=== PATIENT | female | born 1955 | race Caucasian/White ===

== ENCOUNTER 2018-06-09 12:37 | Outpatient (CLI) | payer BC ==
--- NOTE | 2018-06-09 15:41 | MRI ---
MRI THORACIC SPINE NONCONTRAST: Date: 06/09/18 HISTORY: 62-year-old male with M54.6 acute thoracic back pain. COMPARISON: None. FINDINGS: There is moderate disc space narrowing with mild to moderate end plate irregularities at all levels o f the mid and lower thoracic spine. Vertebral body heights are maintained. No major bone marrow signa l abnormality. The thoracic spinal cord is normal in size and signal. There is an anterior epidural mass measuring approximately 1 x 0.5 x 1.5 cm abutting the posterior arana rface of the T12 vertebral body at midline and to the left of midline. It decreases the cross-section al area of spinal canal at that level by approximately 20%. Although there is CSF space between this mass and the lower spinal cord, the lower spinal cord appears to be deformed, moderately indented at its left ventral aspect, and slightly posteriorly displaced. The inferior extent of this mass is at t he posterior edge of the T12-L1 disc space. The superior edge of this mass is at the pedicle level of T12. There are small, shallow disc protrusions or disc-osteophyte complexes that indent the ventral aspect of the thecal sac at multiple levels, on the right, on the left, and at midline variously, at multip le levels in the mid and lower thoracic spine. There is no high grade central spinal canal stenosis a t any level. No high grade neural foraminal stenosis at any level. IMPRESSION: 1. Thoracic spondylosis, with multilevel mild to moderate degenerative disc changes. 2. Extruded disc herniation at T12-L1, with superior migration of the extruded disc material. The lo wer spinal cord appears distorted at the level of this disc herniation, but there is no high grade ce ntral spinal canal stenosis at this level. 3. No high grade central spinal canal stenosis, high grade neural foraminal stenosis, or compression fracture, at any level. POS: [facility]
--- NOTE | 2018-06-09 15:57 | MRI ---
MRI CERVICAL SPINE: HISTORY: Difficulty walking with weakness since November of 2017. FINDINGS: Multiplanar, multisequence noncontrast-enhanced MRI images cervical spine obtained. The cervical spinal cord is unremarkable. C1-2, C2-3, C3-4: Unremarkable. C4-5: Disk desiccation is seen. There is a broad-based disk-osteophyte complex centrally compressin g the thecal sac resulting in a moderate degree of C4-5 central spinal stenosis. Mild spinal cord co mpression is seen. There is moderate bilateral C4-5 neural foraminal narrowing due to uncovertebral osteophyte hypertrophy. C5-6: There is some disk desiccation seen. There is a disk-osteophyte complex centrally resulting i n a moderate degree of central and lateral recess stenosis. There is moderate bilateral C5-6 neural foraminal narrowing due to uncovertebral osteophyte hypertrophy. C6-7: There is some disk desiccation seen. There is mild bilateral C6-7 neural foraminal narrowing due to uncovertebral osteophyte hypertrophy. The central canal is patent. C7-T1: Unremarkable. IMPRESSION: C4-5, C5-6 central and neural foraminal narrowing due to osteophyte encroachment. POS: [facility]
== END 2018-06-09 12:38 | disposition home or self-care (01) ==
LOC: TBSIIMAG 12:37
PROVIDERS: ATTEND Neurological Surgery
DX: M54.6 Pain in thoracic spine (principal); M47.12 Other spondylosis with myelopathy, cervical region; M48.02 Spinal stenosis, cervical region; M99.81 Other biomechanical lesions of cervical region; M25.78 Osteophyte, vertebrae; M51.34 Other intervertebral disc degeneration, thoracic region; M47.894 Other spondylosis, thoracic region; M51.25 Other intervertebral disc displacement, thoracolumbar region
CPT/HCPCS: 72141; 72146

== ENCOUNTER 2023-08-19 11:08 | Emergency (ER) | payer MEDICARE, BC ==
[~2023-08-19 11:08] MED LIST: Iopamidol-370 76% 500 ML MDV (1 ML CHARGE) ONE
[2023-08-19 12:13] LABS: ALT (SGPT) 25 U/L (8-55); AST (SGOT) 33 U/L (5-34); Alkaline Phosphatase 70 U/L (40-110); Anion Gap 15 mmol/L (10-20); BUN (Urea Nitrogen) 19 mg/dL (9.8-20.1); Bilirubin, Total 0.7 mg/dL (0.2-1.2); Calc. Creatinine Clearance 0 mL/min (70-130); Calcium 9.5 mg/dL (7.8-10.44); Carbon Dioxide 30 mmol/L (23-31); Chloride 99 mmol/L (98-107); Estimated GFR 89; Globulin 3.3 g/dL (2.4-3.5); Glucose 97 mg/dL (80-115); Lipase 17 U/L (8-78); Potassium 4.3 mmol/L (3.5-5.1); Protein, Total 7.3 g/dL (5.8-8.1); Sodium 140 mmol/L (136-145)
[2023-08-19 12:17] LABS: Troponin I Less than 0.010 ng/mL (< 0.028)
[2023-08-19 13:03] LABS: #Eosinphils 0.1 thou/uL (0.0-0.7); #Neutrophils 4.7 thou/uL (1.40-6.50); %Basophils 0.2 % (0.0-1.0); %Eosinophils 1.5 % (0.0-10.0); %Lymphocytes 29.5 % (21.0-51.0); %Monocytes 11.6 % (0.0-10.0); %Neutrophils 56.6 % (42.0-75.0); Hematocrit 38.7 % (36.0-47.0); Mean Corpuscular HGB CONC 33.6 g/dL (32.0-36.0); Mean Corpuscular Hemoglobin 34.7 pg (27.0-31.0); Mean Corpuscular Volume 103.2 fl (78.0-98.0); Mean Platelet Volume 10.2 fL (7.4-10.4); Platelet Count 224 10x3/uL (130-400); RBC Distribution Width 13.5 % (11.5-14.5); Red Blood Cell (RBC) Count 3.75 mill/uL (4.20-5.40); White Blood Cell (WBC) Count 8.3 10x3/uL (4.8-10.8)
== END 2023-08-19 17:08 | disposition home or self-care (01) ==
LOC: ERS 11:08
DX: R07.81 Pleurodynia (principal); I10 Essential (primary) hypertension; E03.9 Hypothyroidism, unspecified; E66.9 Obesity, unspecified; G47.30 Sleep apnea, unspecified
CPT/HCPCS: 36415; 71045; 71275; 80053; 83690; 84484; 85025; 93005; 94760; Q9967

== ENCOUNTER 2024-12-01 16:31 | Emergency (ER) | payer MEDICARE ==
[2024-12-01] MEDS ORDERED: Ketorolac Tromethamine 30 MG (1 mL) VIAL ONE (18:19)
[2024-12-01] MEDS ORDERED: Acetaminophen 500 MG TAB ONE (18:20)
[2024-12-01] MEDS ORDERED: diphenhydrAMINE 50 MG/ML VIAL ONE (18:20)
[2024-12-01] MEDS ORDERED: Metoclopramide HCl 10 MG (2 mL) VIAL ONE (18:20)
== END 2024-12-01 21:50 | disposition home or self-care (01) ==
LOC: ERS 16:31
DX: R51.9 Headache, unspecified (principal); I10 Essential (primary) hypertension; E66.9 Obesity, unspecified
CPT/HCPCS: 70450; J1200; J1885; J2765; 96374; 96375

== ENCOUNTER 2025-06-09 10:05 | Inpatient (IN) | payer MEDICARE ==
[2025-06-09 10:32] LABS: #Basophils Less than 0.03 10x3/uL (0.0-0.2); #Eosinophils 0.09 10x3/uL (0.0-0.7); #Monocytes 0.79 10x3/uL (0.11-0.59); #Neutrophils 4.35 10x3/uL (1.40-6.50); %Basophils 0.3 % (0.0-1.0); %Eosinophils 1.2 % (0.0-10.0); %Lymphocytes 27.6 % (21.0-51.0); %Monocytes 10.7 % (0.0-10.0); %Neutrophils 59.1 % (42.0-75.0); Hematocrit 38.0 % (36.0-47.0); Hemoglobin 12.1 g/dL (12.0-16.0); Mean Corpuscular Hemoglobin 33.3 pg (27.0-31.0); Mean Corpuscular Volume 104.7 fL (78.0-98.0); Platelet Count 280 10x3/uL (130-400); Red Blood Cell (RBC) Count 3.63 mill/uL (4.20-5.40); White Blood Cell (WBC) Count 7.36 10x3/uL (4.8-10.8)
[2025-06-09 10:48] LABS: ALT (SGPT) 29 U/L (Less than 34); AST (SGOT) 64 U/L (11-34); Albumin 2.9 g/dL (3.1-4.5); Alkaline Phosphatase 98 U/L (40-110); Anion Gap 17 mmol/L (10-20); BUN (Urea Nitrogen) 8 mg/dL (9.8-20.1); Bilirubin, Total 0.6 mg/dL (0.3-1.2); Calc. Creatinine Clearance 0 mL/min (70-130); Calcium 9.1 mg/dL (7.8-10.44); Carbon Dioxide 33 mmol/L (23-31); Chloride 98 mmol/L (98-107); Globulin 4.0 g/dL (2.4-3.5); Glucose 167 mg/dL (83-110); Lipase 11 U/L (8-78); Magnesium 1.8 mg/dL (1.6-2.6); Potassium 3.9 mmol/L (3.5-5.1); Sodium 144 mmol/L (136-145)
[2025-06-09] MEDS ORDERED: Enoxaparin 100 MG (1 mL) SYRINGE ONE (11:06)
[2025-06-09] MEDS ORDERED: dilTIAZem 25 MG/5 ML VIAL ONE (11:06)
[2025-06-09] MEDS ORDERED: Digoxin 0.5 MG/2 ML AMP ONE (11:44)
[2025-06-09 19:10] VITALS: BMI 42.3
[2025-06-09] MEDS: Magnesium 2 GM/50 ML(in water) 2 GM in Premix 1 BAG IVPB SCH (22:29)
[2025-06-10 05:35] LABS: #Basophils Less than 0.03 10x3/uL (0.0-0.2); #Eosinophils 0.04 10x3/uL (0.0-0.7); #Monocytes 0.83 10x3/uL (0.11-0.59); #Neutrophils 3.84 10x3/uL (1.40-6.50); %Basophils 0.3 % (0.0-1.0); %Eosinophils 0.6 % (0.0-10.0); %Lymphocytes 31.7 % (21.0-51.0); %Monocytes 11.8 % (0.0-10.0); %Neutrophils 54.5 % (42.0-75.0); Hematocrit 38.4 % (36.0-47.0); Hemoglobin 12.2 g/dL (12.0-16.0); Mean Corpuscular Hemoglobin 33.0 pg (27.0-31.0); Mean Corpuscular Volume 103.8 fL (78.0-98.0); Platelet Count 294 10x3/uL (130-400); Red Blood Cell (RBC) Count 3.70 mill/uL (4.20-5.40); White Blood Cell (WBC) Count 7.04 10x3/uL (4.8-10.8)
[2025-06-10] MEDS: Acetaminophen 500 MG TAB PO SCH ×2 (05:42→21:24)
[2025-06-10 05:50] LABS: ALT (SGPT) 17 U/L (Less than 34); AST (SGOT) 57 U/L (11-34); Albumin 2.9 g/dL (3.1-4.5); Alkaline Phosphatase 96 U/L (40-110); Anion Gap 14 mmol/L (10-20); BUN (Urea Nitrogen) 9 mg/dL (9.8-20.1); Bilirubin, Total 0.7 mg/dL (0.3-1.2); Calc. Creatinine Clearance 194 mL/min (70-130); Calcium 9.2 mg/dL (7.8-10.44); Carbon Dioxide 32 mmol/L (23-31); Cardiac Risk 3.8 (Less than 4.5); Chloride 98 mmol/L (98-107); Cholesterol 169 mg/dl (< 200 Desired); Globulin 4.5 g/dL (2.4-3.5); Glucose 160 mg/dL (83-110); HDL Cholesterol 44 mg/dL (>60 Neg Risk); LDL Cholesterol, Calculated 87 mg/dL; Magnesium 2.3 mg/dL (1.6-2.6); Potassium 4.3 mmol/L (3.5-5.1); Sodium 140 mmol/L (136-145); Triglycerides 190 mg/dL (Less than 150)
[2025-06-10] MEDS: Multivit, Therapeutic 1 TAB PO SCH (09:20)
[2025-06-10] MEDS: Ezetimibe 10 MG TAB PO SCH (09:20)
[2025-06-10] MEDS: Cholecalciferol 1,000 UNITS (25 MCG) TAB PO SCH (09:20)
[2025-06-10] MEDS: Famotidine 20 MG TAB PO SCH (09:20)
[2025-06-10] MEDS: Metoprolol Succinate XL 25 MG ER.TAB PO SCH (09:20)
[2025-06-10] MEDS: Divalproex Sodium 500 MG ER.TAB PO SCH (09:21)
[2025-06-10] MEDS: Losartan 25 MG TAB PO SCH (13:31)
[2025-06-10] MEDS: hydrALAZINE 20 MG/ML VIAL SLOW IVP SCH (14:21)
[2025-06-10] MEDS: Melatonin 3 MG TAB PO SCH (21:05)
[2025-06-10] MEDS: hydrALAZINE 20 MG/ML VIAL SLOW IVP PRN (21:06)
[2025-06-10] MEDS: Transdermal Patch Removal TOP SCH (21:06)
[2025-06-10] MEDS: Apixaban 5 MG TAB PO SCH (21:06)
[2025-06-11 04:21] LABS: #Basophils 0.07 10x3/uL (0.0-0.2); #Eosinophils 0.03 10x3/uL (0.0-0.7); #Monocytes 0.96 10x3/uL (0.11-0.59); #Neutrophils 5.35 10x3/uL (1.40-6.50); %Basophils 0.8 % (0.0-1.0); %Eosinophils 0.3 % (0.0-10.0); %Lymphocytes 29.0 % (21.0-51.0); %Monocytes 10.3 % (0.0-10.0); %Neutrophils 57.7 % (42.0-75.0); Hematocrit 37.4 % (36.0-47.0); Hemoglobin 12.6 g/dL (12.0-16.0); Mean Corpuscular Hemoglobin 33.5 pg (27.0-31.0); Mean Corpuscular Volume 99.5 fL (78.0-98.0); Platelet Count 322 10x3/uL (130-400); Red Blood Cell (RBC) Count 3.76 mill/uL (4.20-5.40); White Blood Cell (WBC) Count 9.28 10x3/uL (4.8-10.8)
[2025-06-11 04:49] LABS: ALT (SGPT) 22 U/L (Less than 34); AST (SGOT) 46 U/L (11-34); Albumin 3.0 g/dL (3.1-4.5); Alkaline Phosphatase 96 U/L (40-110); Anion Gap 14 mmol/L (10-20); BUN (Urea Nitrogen) 9 mg/dL (9.8-20.1); Bilirubin, Total 0.7 mg/dL (0.3-1.2); Calc. Creatinine Clearance 217 mL/min (70-130); Calcium 9.5 mg/dL (7.8-10.44); Carbon Dioxide 27 mmol/L (23-31); Chloride 102 mmol/L (98-107); Globulin 4.4 g/dL (2.4-3.5); Glucose 164 mg/dL (83-110); Potassium 3.7 mmol/L (3.5-5.1); Sodium 139 mmol/L (136-145)
[2025-06-11] MEDS: Acetaminophen 325 MG TAB PO PRN (04:52)
[2025-06-11] MEDS: Losartan 25 MG TAB PO SCH (07:39)
[2025-06-11] MEDS ORDERED: Acetaminophen 500 MG TAB PO PRN (08:06)
[2025-06-11] MEDS ORDERED: ZOLMITRIPTAN 5 MG PO PRN (08:22)
[2025-06-11] MEDS ORDERED: Losartan 25 MG TAB PO SCH (09:00)
[2025-06-11] MEDS: Gabapentin 100 MG CAP PO SCH (09:18)
[2025-06-11] MEDS: Baclofen 10 MG TAB PO SCH (09:20)
[2025-06-11] MEDS: Furosemide 20 MG TAB PO SCH (09:20)
[2025-06-11] MEDS: Methocarbamol 500 MG TAB PO SCH (09:20)
[2025-06-11 15:46] VITALS: BP 146/72; TEMP 97.4
[2025-06-12] MEDS ORDERED: Losartan 25 MG TAB PO SCH (09:00)
== END 2025-06-11 21:50 | DRG 281 ==
LOC: ERS 10:05 → ERHOLD 13:52 → 2NO 18:51 → OBSVTOIN 06-10 14:02
PROVIDERS: ADMIT Student in an Organized Health Care Education/Training Program; ATTEND Student in an Organized Health Care Education/Training Program
DX: I48.92 Unspecified atrial flutter (principal); G12.23 Primary lateral sclerosis; I21.A1 Myocardial infarction type 2; Z68.41 Body mass index [BMI] 40.0-44.9, adult; I48.91 Unspecified atrial fibrillation; I10 Essential (primary) hypertension; E78.5 Hyperlipidemia, unspecified; Z96.642 Presence of left artificial hip joint; R07.9 Chest pain, unspecified; Z88.2 Allergy status to sulfonamides; Z88.8 Allergy status to other drugs, medicaments and biological substances; E03.9 Hypothyroidism, unspecified; Z98.890 Other specified postprocedural states; E66.9 Obesity, unspecified; Z79.899 Other long term (current) drug therapy; Z79.890 Hormone replacement therapy
CPT/HCPCS: 36415; 36416; 71045; 80053; 80061; 83036; 83690; 83735; 83880; 84100; 84443; 84484; 85025; 93005; 93306; 94760; 96361; 96365; 96372; 96374; 96375; G0378; J0360; J1160; J1650; J2270; J3475